=== PATIENT | female | born 1990 | race Caucasian/White ===

== ENCOUNTER 2022-11-26 05:00 | Inpatient (IN) | payer OTHER ==
[2022-11-27 06:47] VITALS: BMI 39.1
[2022-11-27] MEDS ORDERED: Lidocaine 1% (PF) 30 ML VIAL SC PRN (06:47)
[2022-11-27] MEDS ORDERED: fentaNYL 50 mcg/mL 1 mL Vial SLOW IVP PRN (06:47)
[2022-11-27] MEDS ORDERED: Misoprostol 100 MCG TAB VAG SCH (06:47)
[2022-11-27] MEDS ORDERED: Ondansetron PF 4 MG/2 ML Vial IVP PRN ×2 (06:47→22:13)
[2022-11-27] MEDS ORDERED: hydrALAZINE 20 MG/ML VIAL SLOW IVP PRN (06:47)
[2022-11-27] MEDS ORDERED: Promethazine HCl 25 MG/ML VIAL IM PRN ×2 (06:47→22:13)
[2022-11-27] MEDS ORDERED: Ibuprofen 800 MG TAB PO PRN (06:47)
[2022-11-27] MEDS ORDERED: Oxytocin 30 units/NS 500 ML 500 ML IV SCH ×3 (06:47)
[2022-11-27] MEDS ORDERED: HYDROcodone/Acetaminophen 5/325 mg Tablet PO PRN ×2 (06:47)
[2022-11-27 07:18] LABS: Hematocrit 33.7 % (34.9-44.5); Hemoglobin 11.9 g/dL (12.0-15.5); Mean Corpuscular HGB CONC 35.3 g/dL (32.0-36.0); Mean Corpuscular Hemoglobin 31.6 pg (27.0-33.0); Mean Corpuscular Volume 89.4 fl (81.6-98.3); Platelet Count 195 10x3/uL (150-450); Red Blood Cell (RBC) Count 3.77 10x6/uL (3.90-5.03); White Blood Cell (WBC) Count 10.9 10x3/uL (3.5-10.5)
[2022-11-27 07:44] LABS: Fetal Membranes Rupture No Membranes Rupture (No Rupture)
[2022-11-27 08:17] LABS: HBSAg Index 0.11 S/CO (0-0.99); Hep B Surf Ag - L&D Non-Reactive S/CO (NonReactive); Syphilis Antibody Nonreactive (Nonreactive); Syphilis Antibody Index 0.05 S/CO (<1.00 Non-Reactive)
[2022-11-27] MEDS: Misoprostol 100 MCG TAB VAG SCH ×2 (10:51→22:41)
[2022-11-27] MEDS ORDERED: Dinoprostone 10 MG Suppository VAG SCH (17:15)
[2022-11-27] MEDS: Lactated Ringer's 1,000 ML IV SCH (20:54)
[2022-11-27] MEDS ORDERED: fentaNYL/Ropivacaine Epidural 100 ML ONE (21:29)
[2022-11-27] MEDS ORDERED: Lactated Ringer's 500 ML IV PRN (22:13)
[2022-11-27] MEDS ORDERED: Naloxone HCl 0.4 mg/ml Vial IVP PRN ×2 (22:13)
[2022-11-27] MEDS ORDERED: diphenhydrAMINE 50 MG/ML VIAL IVP PRN (22:13)
[2022-11-27] MEDS ORDERED: Moisturizing Cream (Eucerin) 113 GM JAR TOP PRN (22:13)
[2022-11-27] MEDS ORDERED: Acetaminophen 325 MG TAB PO PRN (22:13)
[2022-11-27] MEDS ORDERED: ePHEDrine Sulfate 50 MG/10 ML VIAL SLOW IVP PRN (22:13)
[2022-11-27] MEDS ORDERED: fentaNYL 2 mcg/Ropivacaine 0.2% Epidural 100 ML CADD EPIDURAL SCH (22:15)
[2022-11-27] MEDS ORDERED: Communication Order-Pharmacy FS SCH (22:15)
[2022-11-28] MEDS ORDERED: Bupivacaine 0.25% HCL 30 ML VIAL ONE (07:00)
[2022-11-28] MEDS ORDERED: Lidocaine 1% (PF) 30 ML VIAL ONE (14:27)
[2022-11-28] MEDS ORDERED: Misoprostol 200 MCG TAB ONE (14:38)
[2022-11-28] MEDS ORDERED: Carboprost 250 MCG/ML AMP ONE (14:38)
[2022-11-28] MEDS ORDERED: Tranexamic Acid 1,000 MG/10 ML VIAL ONE (14:38)
[2022-11-28] MEDS ORDERED: Ibuprofen 800 MG TAB PO PRN (16:02)
[2022-11-28] MEDS ORDERED: Phytonadione Neonatal 1 MG/0.5 ML AMP ONE (16:08)
[2022-11-28] MEDS ORDERED: Hepatitis B Vaccine 10 MCG/0.5 ML SYR ONE (16:08)
[2022-11-28] MEDS ORDERED: Erythromycin Base 0.5% Oint 1 GM TUBE ONE (16:08)
[2022-11-28] MEDS ORDERED: Preparation H Ointment 28 GM TUBE PR PRN (18:39)
[2022-11-28] MEDS ORDERED: Lanolin Ointment 7 GM TUBE TOP PRN (18:39)
[2022-11-28] MEDS ORDERED: diphenhydrAMINE 25 MG CAP PO PRN (18:39)
[2022-11-28] MEDS ORDERED: Oxytocin 30 units/NS 500 ML 500 ML IV SCH (18:39)
[2022-11-28] MEDS ORDERED: Benzocaine-Menthol 82.5 ML CAN TOP PRN (18:39)
[2022-11-28] MEDS ORDERED: HYDROcodone/Acetaminophen 5/325 mg Tablet PO PRN ×2 (18:39)
[2022-11-28] MEDS ORDERED: Boostrix 0.5 ML (Tdap) VIAL (>/=7 yrs of age) IM ONE (18:39)
[2022-11-28] MEDS ORDERED: hydrALAZINE 20 MG/ML VIAL SLOW IVP PRN (18:39)
[2022-11-28] MEDS ORDERED: Ondansetron PF 4 MG/2 ML Vial IVP PRN (18:39)
[2022-11-28] MEDS ORDERED: Milk Of Magnesia 30 ML UDCUP PO PRN (18:39)
[2022-11-28] MEDS ORDERED: Bisacodyl 10 MG SUPP PR PRN (18:39)
[2022-11-28] MEDS ORDERED: Ferrous Sulfate 325 MG TAB PO SCH (18:45)
[2022-11-28] MEDS: Docusate 100 MG CAP PO SCH (22:03)
[2022-11-29] MEDS: Ibuprofen 800 MG TAB PO SCH ×4 (00:15→16:44)
[2022-11-29] MEDS: Lactated Ringer's 1,000 ML IV SCH ×2 (03:37→09:29)
[2022-11-29] MEDS: Prenatal Vitamin 1 TAB PO SCH (08:49)
[2022-11-29] MEDS: Docusate 100 MG CAP PO SCH ×2 (08:49→20:53)
[2022-11-29] MEDS: Ferrous Sulfate 325 MG TAB PO SCH ×2 (08:50→17:08)
[2022-11-29 22:39] VITALS: TEMP 98.2
[2022-11-30] MEDS: Ibuprofen 800 MG TAB PO SCH ×2 (00:04→08:15)
[2022-11-30 07:46] VITALS: BP 131/83
[2022-11-30] MEDS: Prenatal Vitamin 1 TAB PO SCH (08:16)
[2022-11-30] MEDS: Docusate 100 MG CAP PO SCH (08:16)
[2022-11-30] MEDS: Ferrous Sulfate 325 MG TAB PO SCH (09:09)
== END 2022-11-30 13:15 | disposition home or self-care (01) | DRG 807 ==
LOC: CSHLD 11-27 05:48 → CSHPP 11-28 17:19
PROVIDERS: ADMIT Obstetrics & Gynecology; ATTEND Obstetrics & Gynecology
PROC: 3E0P7VZ Introduction of Hormone into Female Reproductive, Via Natural or Artificial Opening (ICD-10-PCS; 2022-11-27)
PROC: 10E0XZZ Delivery of Products of Conception, External Approach (ICD-10-PCS; principal; 2022-11-28)
PROC: 0KQM0ZZ Repair Perineum Muscle, Open Approach (ICD-10-PCS; 2022-11-28)
PROC: 10907ZC Drainage of Amniotic Fluid, Therapeutic from Products of Conception, Via Natural or Artificial Opening (ICD-10-PCS; 2022-11-28)
PROC: 10H07YZ Insertion of Other Device into Products of Conception, Via Natural or Artificial Opening (ICD-10-PCS; 2022-11-28)
PROC: 3E033VJ Introduction of Other Hormone into Peripheral Vein, Percutaneous Approach (ICD-10-PCS; 2022-11-28)
DX: O26.893 Other specified pregnancy related conditions, third trimester (principal); Z37.0 Single live birth; Z67.11 Type A blood, Rh negative; Z3A.39 39 weeks gestation of pregnancy; Z88.1 Allergy status to other antibiotic agents; O70.1 Second degree perineal laceration during delivery
CPT/HCPCS: 51702; 84112; 85027; 86780; 86850; 86900; 86901; 87340; J2590; J3010; J7120; S0020